=== PATIENT | female | born 1985 | race Caucasian/White ===

== ENCOUNTER 2021-12-13 07:43 | Inpatient (IN) ==
[2021-12-13] MEDS ORDERED: SODIUM CHLORIDE 0.9% 1000ML 1,000 ML IV SCH (08:00)
--- NOTE | 2021-12-13 08:00 | Emergency Department Note ---
Impression & Plan Overdose, Hypoxic, Drug abuse ED Provider Note NAME: MONICA GARDNER AGE: 36 SEX: F : 1985 ARRIVES VIA: Ambulance INFORMANT: Patient ED PROVIDER(S): Aime Doty DO CHIEF COMPLAINT: Overdose HPI: Patient is a 35-year-old female who is an alcoholic who presents from [facility]. She notes she took her normal medications last night of gabapentin, trazodone and Zanaflex. He took these medications around 9. She notes prior to going in patient and she took a bunch of Adderall and has been unable to sleep. Somebody last [facility] gave her Suboxone and she took some of it last night to help her sleep. She thinks she took this summer around 11 PM. She denies any suicidal or homicidal ideations. No auditory visual hallucinations. She denies any chest pain with exception of pain on her left ribs following a fall. Pain is worse with palpation and movement. Denies any weakness or numbness in the arms or legs. ROS: See above HPI for pertinent positives & negatives. A total of 10 systems reviewed and were otherwise negative. PAST MEDICAL HISTORY:See Below PAST SURGICAL HISTORY:See Below FAMILY HISTORY:See Below SOCIAL HISTORY:See Below HOME MEDICATIONS:See Below ALLERGIES:See Below VITALS:See Below PHYSICAL EXAMINATION: GENERAL: Sitting up in bed, alert, disheveled, slightly intoxicated EYE EXAM: normal conjunctiva. PERRL and EOM's grossly intact. OROPHARYNX: no exudate, no erythema, lips, buccal mucosa, and tongue normal and mucous membranes are moist NECK: supple, no nuchal rigidity, no adenopathy, non-tender CHEST: Tenderness over the left lateral chest mid axillary line ribs 3 through 6 LUNGS: Clear to auscultation. Normal chest wall mechanics HEART: no murmurs, S1 normal and S2 normal ABDOMEN: abdomen soft, non-tender, normo-active bowel sounds, no masses, no rebound or guarding. BACK: Back is symmetrical on inspection and there is no deformity, no midline tenderness, no CVA tenderness. SKIN: no rashes and no bruising UPPER EXTREMITIES: upper extremities are grossly normal. LOWER EXTREMITIES: No pitting edema. NEURO EXAM: Normal sensorium, cranial nerves II-XII intact, normal speech, no weakness of arms, no weakness of legs. No drift. Finger to nose intact. Gross sensation intact. MEDICAL DECISION MAKING: Patient is a 36-year-old female who took nonprescribed medication to help her sleep at [facility]. IV was established blood work was obtained. Labs show no significant leukocytosis or anemia. BMP on LFTs bilirubin was unremarkable. TSH 4.7. Salicylates, acetaminophen, valproate, lithium and alcohol were negative. COVID was negative. She was monitored closely and her respiratory rate continued to decrease. She was placed on 2 L nasal cannula while in the ER as she was slightly hypoxic. She was difficult to arouse. Respiratory rate went down to 6. I did verbally stimulate her and she woke up. She initially refused Narcan but she fell back asleep and her respiratory rate went down again consequently she was given IV Narcan. Her respiratory rate improved. Did dis cuss with [facility] and they agree with current plan. Discussed with Luis Antonio Man and patient will be observed overnight. Triage Nursing notes reviewed. Limited review of prior medical records performed Vital Signs: reviewed and remarkable for no significant abnormalities Differential diagnosis: Differential diagnoses includes but is not limited to toxic, metabolic, infectious, traumatic, cardiac, neurologic, hematologic, psychiatric and inflammatory etiologies. ER treatment provided: See below Diagnostics interpreted by me: ECG: Sinus rhythm rate of 91 Normal axis No PVCs QTC 472 Cardiac Monitoring: An order was placed for continuous cardiac monitoring. The monitor shows a rate of 90 with sinus rhythm. Laboratory studies: As stated above and show below. Imaging studies: Portable AP upright 1 view the chest is unremarkable Consultation(s): With [facility] control as described above Discussed with the hospitalist Luis Antonio Man for further evaluation Procedures: none Critical Care: I have personally spent 31 minutes of critical care time in the direct management of this patient. This includes bedside care, interpretation of diagnostic studies, and testing, discussion with consultants, patient, and family members, and other required patient management activities. This 31 minutes is in excess of all separately billable procedures. Past Med/Surg History Medical History (Updated 12/13/21 @ 13:03 by Aime Doty DO) Alcohol abuse GERD (gastroesophageal reflux disease) PTSD (post-traumatic stress disorder) Withdrawal seizures Social History (Updated 12/13/21 @ 11:14 by ALIN Parada) Smoking Status: Current every day smoker Tobacco Type: E-cigarettes / Vaping Hx Alcohol Use: Yes Hx Substance Use: Yes Feels Safe at Home: Yes Home Meds Home Medications Medication Instructions Recorded Confirmed biotin 1,000 mcg chewable tablet 1,000 mcg PO DAILY 12/13/21 12/13/21 cyanocobalamin (vitamin B-12) 1,000 mcg PO DAILY 12/13/21 12/13/21 1,000 mcg tablet (Vitamin B-12) diazepam 5 mg tablet (Valium) 5 mg PO TID 12/13/21 12/13/21 folic acid 1 mg tablet 1 mg PO DAILY 12/13/21 12/13/21 gabapentin 600 mg tablet 600 mg PO DAILY 12/13/21 12/13/21 multivitamin 1 tab PO DAILY 12/13/21 12/13/21 paroxetine HCl 40 mg tablet 50 mg PO DAILY 12/13/21 12/13/21 thiamine HCl (vitamin B1) 100 mg 100 mg PO DAILY 12/13/21 12/13/21 tablet trazodone 100 mg tablet 100 mg PO HS 12/13/21 12/13/21 Results & Data (ED) Vital Signs Vital Signs - 24 hr 12/13/21 07:53 12/13/21 08:05 12/13/21 08:30 Temperature 36.8 C Temperature Source Oral Pulse Rate 90 86 91 H Pulse Rate [Apical] Pulse Rate from SpO2 Sensor 85 92 H Respiratory Rate 18 16 12 Blood Pressure 101/77 110/73 Blood Pressure [Left Arm] Blood Pressure Mean 85 85 Blood Pressure Mean [Left Arm] Pulse Oximetry 95 99 97 Oxygen Delivery Method Room Air Oxygen Flow Rate 2 2 Sepsis Recent Fever Within 48 Hours No Sepsis New/Unexplained Change in Mental Status No Sepsis Action Taken by Nursing No Action Required 12/13/21 09:00 12/13/21 09:09 12/13/21 09:30 Temperature Temperature Source Pulse Rate 96 H 98 H Pulse Rate [Apical] Pulse Rate from SpO2 Sensor 97 H 99 H Respiratory Rate 16 12 Blood Pressure 108/72 120/72 Blood Pressure [Left Arm] Blood Pressure Mean 84 88 Blood Pressure Mean [Left Arm] Pulse Oximetry 98 92 Oxygen Delivery Method Nasal Cannula Oxygen Flow Rate 2 2 2 Sepsis Recent Fever Within 48 Hours Sepsis New/Unexplained Change in Mental Status Sepsis Action Taken by Nursing 12/13/21 10:00 12/13/21 10:30 12/13/21 11:00 Temperature Temperature Source Pulse Rate 96 H 94 H 86 Pulse Rate [Apical] 95 H Pulse Rate from SpO2 Sensor 97 H 96 H 83 Respiratory Rate 6 L 21 10 L Blood Pressure 120/88 92/61 L 108/77 Blood Pressure [Left Arm] 108/77 Blood Pressure Mean 98 71 87 Blood Pressure Mean [Left Arm] 87 Pulse Oximetry 100 99 100 Oxygen Delivery Method Nasal Cannula Oxygen Flow Rate 2 2 2 Sepsis Recent Fever Within 48 Hours Sepsis New/Unexplained Change in Mental Status Sepsis Action Taken by Nursing 12/13/21 11:30 12/13/21 12:00 Temperature Temperature Source Pulse Rate 89 93 H Pulse Rate [Apical] Pulse Rate from SpO2 Sensor 90 93 H Respiratory Rate 18 12 Blood Pressure 105/74 112/79 Blood Pressure [Left Arm] Blood Pressure Mean 84 90 Blood Pressure Mean [Left Arm] Pulse Oximetry 97 100 Oxygen Delivery Method Nasal Cannula Nasal Cannula Oxygen Flow Rate 2 2 Sepsis Recent Fever Within 48 Hours Sepsis New/Unexplained Change in Mental Status Sepsis Action Taken by Nursing Laboratory Data Result diagrams: 12/13/21 08:12 12/13/21 08:12 Lab Results 12/13/21 12/13/21 12/13/21 Range/Units 08:12 08:12 08:12 WBC 7.88 (4.8-10.8) K/uL RBC 4.37 (4.2-5.4) M/uL Hgb 11.6 L (12.0-16.0) g/dL Hct 35.8 L (37-47) % MCV 81.9 (80-100) fL MCH 26.5 (25-34) pg MCHC 32.4 (32-36) g/dL RDW Std Deviation 45.3 (36.4-46.3) fL RDW Coeff of Prosper 15.3 H (11.5-14.5) % Plt Count 296 (130-400) K/uL MPV 9.6 (7.4-10.4) fL Immature Gran % (Auto) 0.1 % Neut % (Auto) 66.9 % Lymph % (Auto) 25.1 % [place] % (Auto) 7.0 % Eos % (Auto) 0.6 % Baso % (Auto) 0.3 % Neut # (Auto) 5.27 (1.4-6.5) K/uL Lymph # (Auto) 1.98 (1.2-3.4) K/uL [place] # (Auto) 0.55 (0.11-0.59) K/uL Eos # (Auto) 0.05 (0-0.5) K/uL Baso # (Auto) 0.02 (0-0.2) K/uL Immature Gran # (Auto) 0.01 (0.00-0.02) K/uL VBG pH VBG pCO2 VBG pO2 VBG HCO3 VBG O2 Saturation VBG Base Excess Barometric Pressure Sodium 139 (136-145) mmol/L Potassium 3.7 (3.5-5.1) mmol/L Chloride 104 (98-107) mmol/L Carbon Dioxide 28 (21-32) mmol/L Anion Gap 7 (3-11) BUN 9 (6-23) mg/dl Creatinine 0.91 (0.6-1.2) mg/dl Est Cr Clr Drug Dosing 89.2 ml/min Est GFR ( Amer) 95.4 ml/min Est GFR (Non-Af Amer) 82.3 ml/min BUN/Creatinine Ratio 9.9 L (10-20) Glucose 84 (70-99(Fasting)) mg/dl POC Glucose (70-99) mg/dl Lactate (0.4-2.0) mmol/L Calcium 8.4 L (8.5-10.1) mg/dl Total Bilirubin 0.3 (0.2-1.0) mg/dl AST 14 (13-39) U/L ALT 13 (7-52) U/L Alkaline Phosphatase 73 (34-104) U/L Total Protein 6.9 (6.0-8.3) gm/dl Albumin 4.0 (3.4-5.0) gm/dl Globulin 2.9 (2.5-4.0) gm/dl Albumin/Globulin Ratio 1.4 (0.9-2) TSH 4.799 H (0.300-4.500) uIu/ml Free T4 1.09 (0.61-1.60) ng/dl Salicylates (3.0-30) mg/dl Acetaminophen (10-30) ug/ml Valproic Acid (50-100) mcg/ml Cuney (0.6-1.2) mmol/L Ethyl Alcohol mg/dL (<10.0) mg/dl SARS-CoV-2, RNA, NAAT (NEGATIVE) 12/13/21 12/13/21 12/13/21 Range/Units 08:12 08:12 10:00 WBC (4.8-10.8) K/uL RBC (4.2-5.4) M/uL Hgb (12.0-16.0) g/dL Hct (37-47) % MCV (80-100) fL MCH (25-34) pg MCHC (32-36) g/dL RDW Std Deviation (36.4-46.3) fL RDW Coeff of Prosper (11.5-14.5) % Plt Count (130-400) K/uL MPV (7.4-10.4) fL Immature Gran % (Auto) % Neut % (Auto) % Lymph % (Auto) % [place] % (Auto) % Eos % (Auto) % Baso % (Auto) % Neut # (Auto) (1.4-6.5) K/uL Lymph # (Auto) (1.2-3.4) K/uL [place] # (Auto) (0.11-0.59) K/uL Eos # (Auto) (0-0.5) K/uL Baso # (Auto) (0-0.2) K/uL Immature Gran # (Auto) (0.00-0.02) K/uL VBG pH VBG pCO2 VBG pO2 VBG HCO3 VBG O2 Saturation VBG Base Excess Barometric Pressure Sodium (136-145) mmol/L Potassium (3.5-5.1) mmol/L Chloride (98-107) mmol/L Carbon Dioxide (21-32) mmol/L Anion Gap (3-11) BUN (6-23) mg/dl Creatinine (0.6-1.2) mg/dl Est Cr Clr Drug Dosing ml/min Est GFR ( Amer) ml/min Est GFR (Non-Af Amer) ml/min BUN/Creatinine Ratio (10-20) Glucose (70-99(Fasting)) mg/dl POC Glucose 92 (70-99) mg/dl Lactate (0.4-2.0) mmol/L Calcium (8.5-10.1) mg/dl Total Bilirubin (0.2-1.0) mg/dl AST (13-39) U/L ALT (7-52) U/L Alkaline Phosphatase (34-104) U/L Total Protein (6.0-8.3) gm/dl Albumin (3.4-5.0) gm/dl Globulin (2.5-4.0) gm/dl Albumin/Globulin Ratio (0.9-2) TSH (0.300-4.500) uIu/ml Free T4 (0.61-1.60) ng/dl Salicylates < 3.0 L (3.0-30) mg/dl Acetaminophen < 3 L (10-30) ug/ml Valproic Acid < 10 L (50-100) mcg/ml Cuney < 0.1 L (0.6-1.2) mmol/L Ethyl Alcohol mg/dL < 10.0 (<10.0) mg/dl SARS-CoV-2, RNA, NAAT (NEGATIVE) 12/13/21 12/13/21 12/13/21 Range/Units 10:20 10:51 12:25 WBC (4.8-10.8) K/uL RBC (4.2-5.4) M/uL Hgb (12.0-16.0) g/dL Hct (37-47) % MCV (80-100) fL MCH (25-34) pg MCHC (32-36) g/dL RDW Std Deviation (36.4-46.3) fL RDW Coeff of Prosper (11.5-14.5) % Plt Count (130-400) K/uL MPV (7.4-10.4) fL Immature Gran % (Auto) % Neut % (Auto) % Lymph % (Auto) % [place] % (Auto) % Eos % (Auto) % Baso % (Auto) % Neut # (Auto) (1.4-6.5) K/uL Lymph # (Auto) (1.2-3.4) K/uL [place] # (Auto) (0.11-0.59) K/uL Eos # (Auto) (0-0.5) K/uL Baso # (Auto) (0-0.2) K/uL Immature Gran # (Auto) (0.00-0.02) K/uL VBG pH Cancelled VBG pCO2 Cancelled VBG pO2 Cancelled VBG HCO3 Cancelled VBG O2 Saturation Cancelled VBG Base Excess Cancelled Barometric Pressure Cancelled Sodium (136-145) mmol/L Potassium (3.5-5.1) mmol/L Chloride (98-107) mmol/L Carbon Dioxide (21-32) mmol/L Anion Gap (3-11) BUN (6-23) mg/dl Creatinine (0.6-1.2) mg/dl Est Cr Clr Drug Dosing ml/min Est GFR ( Amer) ml/min Est GFR (Non-Af Amer) ml/min BUN/Creatinine Ratio (10-20) Glucose (70-99(Fasting)) mg/dl POC Glucose (70-99) mg/dl Lactate 1.1 (0.4-2.0) mmol/L Calcium (8.5-10.1) mg/dl Total Bilirubin (0.2-1.0) mg/dl AST (13-39) U/L ALT (7-52) U/L Alkaline Phosphatase (34-104) U/L Total Protein (6.0-8.3) gm/dl Albumin (3.4-5.0) gm/dl Globulin (2.5-4.0) gm/dl Albumin/Globulin Ratio (0.9-2) TSH (0.300-4.500) uIu/ml Free T4 (0.61-1.60) ng/dl Salicylates (3.0-30) mg/dl Acetaminophen (10-30) ug/ml Valproic Acid (50-100) mcg/ml Cuney (0.6-1.2) mmol/L Ethyl Alcohol mg/dL (<10.0) mg/dl SARS-CoV-2, RNA, NAAT NEGATIVE (NEGATIVE) 12/13/21 Range/Units 12:25 WBC (4.8-10.8) K/uL RBC (4.2-5.4) M/uL Hgb (12.0-16.0) g/dL Hct (37-47) % MCV (80-100) fL MCH (25-34) pg MCHC (32-36) g/dL RDW Std Deviation (36.4-46.3) fL RDW Coeff of Prosper (11.5-14.5) % Plt Count (130-400) K/uL MPV (7.4-10.4) fL Immature Gran % (Auto) % Neut % (Auto) % Lymph % (Auto) % [place] % (Auto) % Eos % (Auto) % Baso % (Auto) % Neut # (Auto) (1.4-6.5) K/uL Lymph # (Auto) (1.2-3.4) K/uL [place] # (Auto) (0.11-0.59) K/uL Eos # (Auto) (0-0.5) K/uL Baso # (Auto) (0-0.2) K/uL Immature Gran # (Auto) (0.00-0.02) K/uL VBG pH 7.22 L VBG pCO2 76 H VBG pO2 28 VBG HCO3 31 VBG O2 Saturation < 60.0 VBG Base Excess 1.0 Barometric Pressure 732.0 Sodium (136-145) mmol/L Potassium (3.5-5.1) mmol/L Chloride (98-107) mmol/L Carbon Dioxide (21-32) mmol/L Anion Gap (3-11) BUN (6-23) mg/dl Creatinine (0.6-1.2) mg/dl Est Cr Clr Drug Dosing ml/min Est GFR ( Amer) ml/min Est GFR (Non-Af Amer) ml/min BUN/Creatinine Ratio (10-20) Glucose (70-99(Fasting)) mg/dl POC Glucose (70-99) mg/dl Lactate (0.4-2.0) mmol/L Calcium (8.5-10.1) mg/dl Total Bilirubin (0.2-1.0) mg/dl AST (13-39) U/L ALT (7-52) U/L Alkaline Phosphatase (34-104) U/L Total Protein (6.0-8.3) gm/dl Albumin (3.4-5.0) gm/dl Globulin (2.5-4.0) gm/dl Albumin/Globulin Ratio (0.9-2) TSH (0.300-4.500) uIu/ml Free T4 (0.61-1.60) ng/dl Salicylates (3.0-30) mg/dl Acetaminophen (10-30) ug/ml Valproic Acid (50-100) mcg/ml [place]une[place] (0.6-1.2) mmol/L Ethyl Alcohol mg/dL (<10.0) mg/dl SARS-CoV-2, RNA, NAAT (NEGATIVE) Administered Medications Lactated Ringer's (Lr) 1,000 mls @ 125 mls/hr IV .Q8H EVER Stop: 01/12/22 11:26 Last Admin: 12/13/21 11:43 Dose: 125 mls/hr Documented by: [id number] Discontinued Medications Sodium Chloride (Nss 1000ml) 1,000 mls @ 999 mls/hr IV .Q1H1M EVER Stop: 12/13/21 09:00 Last Infusion: 12/13/21 09:39 Dose: 0 mls/hr Documented by: [id number] Admin: 12/13/21 08:16 Dose: 999 mls/hr Documented by: [id number] Naloxone HCl (Naloxone Hcl 0.4 Mg/1 Ml Vial/Carp) 0.4 mg IV NOW STA Stop: 12/13/21 09:57 Last Admin: 12/13/21 10:06 Dose: 0.2 mg Documented by: [id number] Naloxone HCl (Naloxone Hcl 0.4 Mg/1 Ml Vial/Carp) 0.4 mg IV NOW STA Stop: 12/13/21 10:39 Last Admin: 12/13/21 11:42 Dose: 0.4 mg Documented by: [id number] Naloxone HCl (Naloxone Hcl 0.4 Mg/1 Ml Vial/Carp) 0.4 mg IV NOW STA Stop: 12/13/21 12:28 Last Admin: 12/13/21 12:33 Dose: 0.4 mg Documented by: [id number] Imaging Data Radiologist's Impression: Chest X-Ray 12/13/21 07:57 XR chest 1V portable CLINICAL HISTORY: OD. COMPARISON STUDY: No previous studies for comparison. TECHNIQUE: 1 view of the chest FINDINGS: Single frontal view of the chest demonstrates the cardiomediastinal silhouette to be within normal limits. There is a decreased inspiratory effort with elevation of the hemidiaphragms and crowding of the bronchovascular markings at the lung bases and centrally. The lungs are clear of alveolar opacities. There is no evidence for pleural effusion. There is no evidence for vascular congestion. There is no acute osseous pathology. IMPRESSION: 1. There is a decreased inspiratory effort with otherwise no acute chest diseas e. ACT 112: Negative or not required by law. Electronically signed by: Felix Castle M.D. 12/13/2021 8:43 AM Discharge Plan Visit Data Chief Complaint: Overdose (Intentional) Stated Complaint: AMS/Overdose ED Provider: Aime Doty Discharge Problem: Overdose, Hypoxic, Drug abuse Discharge Instructions Interventions: ED Discharge Assessment Last Done: 12/13/21 12:09 Forms Stand Alone Forms: My [facility], Suicide Prevention Resources Prescriptions Prescriptions: No Action multivitamin Tablet 1 tab PO DAILY RF: 0 gabapentin 600 mg Tablet 600 mg PO DAILY RF: 0 cyanocobalamin (vitamin B-12) [Vitamin B-12] 1,000 mcg Tablet 1,000 mcg PO DAILY RF: 0 thiamine HCl (vitamin B1) 100 mg Tablet 100 mg PO DAILY RF: 0 trazodone 100 mg Tablet 100 mg PO HS RF: 0 folic acid 1 mg Tablet 1 mg PO DAILY RF: 0 paroxetine HCl 40 mg Tablet 50 mg PO DAILY RF: 0 diazepam [Valium] 5 mg Tablet 5 mg PO TID RF: 0 biotin 1,000 mcg Tablet,Chewable 1,000 mcg PO DAILY RF: 0 Referrals Referrals: PCP,NO [Primary Care Provider] -
[2021-12-13 08:27] LABS: Basophils # (auto) 0.02 K/uL (0-0.2); Basophils % (auto) 0.3 %; Eosinophils # (auto) 0.05 K/uL (0-0.5); Eosinophils % (auto) 0.6 %; Hematocrit (blood only) 35.8 % (37-47); Hemoglobin 11.6 g/dL (12.0-16.0); Immature Granulocytes # (auto) 0.01 K/uL (0.00-0.02); Immature Granulocytes % (auto) 0.1 %; Lymphocytes # (auto) 1.98 K/uL (1.2-3.4); Lymphocytes % (auto) 25.1 %; Mean Corpuscular Hemoglobin 26.5 pg (25-34); Mean Corpuscular Hgb Conc 32.4 g/dL (32-36); Mean Corpuscular Volume 81.9 fL (80-100); Mean Platelet Volume 9.6 fL (7.4-10.4); Monocytes # (auto) 0.55 K/uL (0.11-0.59); Neutrophils # (auto) 5.27 K/uL (1.4-6.5); Neutrophils % (auto) 66.9 %; Platelet Count 296 K/uL (130-400); RDW Coefficient of Variation 15.3 % (11.5-14.5); RDW Standard Deviation 45.3 fL (36.4-46.3); Red Blood Count 4.37 M/uL (4.2-5.4); White Blood Count 7.88 K/uL (4.8-10.8)
--- NOTE | 2021-12-13 08:45 | XRay Report ---
XR chest 1V portable CLINICAL HISTORY: OD. COMPARISON STUDY: No previous studies for comparison. TECHNIQUE: 1 view of the chest FINDINGS: Single frontal view of the chest demonstrates the cardiomediastinal silhouette to be within normal li mits. There is a decreased inspiratory effort with elevation of the hemidiaphragms and crowding of th e bronchovascular markings at the lung bases and centrally. The lungs are clear of alveolar opacities . There is no evidence for pleural effusion. There is no evidence for vascular congestion. There is n o acute osseous pathology. IMPRESSION: 1. There is a decreased inspiratory effort with otherwise no acute chest disease. ACT 112: Negative or not required by law. Electronically signed by: Felix Castle M.D. 12/13/2021 8:43 AM
[2021-12-13 08:47] LABS: Albumin Globulin Ratio 1.4 (0.9-2); BUN Creatinine Ratio 9.9 (10-20); Bilirubin,Total 0.3 mg/dl (0.2-1.0); Calcium 8.4 mg/dl (8.5-10.1); Creatinine Clr Calc Pharmacy 89.2 ml/min; Est GFR (African American) 95.4 ml/min; Est GFR (Non-African American) 82.3 ml/min; Globulin 2.9 gm/dl (2.5-4.0); Potassium 3.7 mmol/L (3.5-5.1); Total Protein 6.9 gm/dl (6.0-8.3)
[2021-12-13 09:04] LABS: Acetaminophen < 3 ug/ml (10-30); Lithium < 0.1 mmol/L (0.6-1.2); Salicylate < 3.0 mg/dl (3.0-30); Valproic Acid < 10 mcg/ml (50-100)
[2021-12-13 09:14] LABS: Thyroid Stimulating Hormone 4.799 uIu/ml (0.300-4.500)
[2021-12-13] MEDS ORDERED: NALOXONE HCL 0.4 MG/1 ML VIAL/CARP IV STA ×3 (09:56→12:27)
[2021-12-13 11:17] LABS: T4 Free Thyroxine 1.09 ng/dl (0.61-1.60)
--- NOTE | 2021-12-13 11:27 | History & Physical Report ---
Date of Service December 13, 2021 Assessment & Plan (1) Overdose: Plan: Patient with alcohol history who was enrolled to [facility] rehab on [id number] with her last drink of Alcohol reported [id number]- she used to drink to pass out and has since been unable to sleep - As per HPI unsure of what is ingested- but she reports 30tabs of adderral uncertain time and 1/2 of suboxone or like agent - Narcan 0.4 mg IV now - admit to PCU with EtCO2 monitoring- if she needs another dose of Narcan will initiate narcan infusion while pending the rest of her urine tox screen - HCo3 is normal- VBG and lactate on admission - Unintentional overdose without suicidal ideation voiced by patient- will remain 1:1 until better able to contract for safety - LR at 125ml/hour - Urine tox scree for full profile of other agents - Should show improvement by this afternoon Will hold her benzodiazepines at this time with her somnolence- should she seize from ETOH/benzo withdraw- Valium IV 5mg - Will also cut her dose of gabapentin by 50% until more awake to avoid further possible sedating effects but also prevent withdraw - Mentation clears will add AAWS - Dextrose sticks for hyper/hypoglycemic monitoring (2) Alcohol abuse: Plan: As above- she reports previously sober x 4 years - drinks secondary to a PTSD event- unsure what - Return to [facility] once mentation improves and no other metabolic abnormalities - Continue Thiamine and Folic acid (3) Withdrawal seizures: Plan: As above (4) PTSD (post-traumatic stress disorder): Plan: As above - continue Paxil (5) GERD (gastroesophageal reflux disease): Plan: Famotidine IV until Po tolerated History of Present Illness Primary Care Provider: NO PCP 36 YOF with medical history of: Alcohol abuse, reported seizures with withdraw, neuropathy, PTSD, rib pain from fall. Patient comes to the EMD today from [facility] rehab for concern of overdose. The patient reports that she has been having trouble sleeping since she has stopped drinking and just wanted something to help her sleep. She reports taking 30 tabs of Adderall but unclear of time- appears to be yesterday, and then still unable to sleep she took 1/2 tab of Suboxone from a person there and took that. She reports that she knew it was Suboxone by "the taste". The patient states that she took her normal amount of her other medications last evening at their normal dose except the Adderall and the Suboxone. In the EMD the patient had routine labs performed to include- salicylate level, etoh level, Tylenol level, valproic acid, and lithium level, ECG, CXR. She was given 0.2mg IV Narcan in EMD and 1 liter of crystalloid. Hospitalist service was consulted for admission. She has not voided yet so will obtain straight cath if she does not void with tox screen for full profile. Will administer another dose of Narcan as she remains somnolent, but is improving as the interview goes on. RR as low as 6 upon entering room. She will be admitted to PCU status with monitoring capabilities of EtCO2 and continue to follow her mentation and Narcan needs. She has normal Qt interval. EMD discussed with poison control. Overall patient slightly improving- as above re-dose Narcan if needed- continue with IVF of LR at 125ml/hr- will hold on her benzodiazepine for now until her mentation improves and will likely be able to dose later for her ETHO withdraw/seizures. VBG and lactate pending as well as urine tox. COVID test is: NEGATIVE Reports [facility]CP as: [facility] in [place]- [phone] as well as physician at [facility] Medications Medication Instructions Recorded Confirmed Type biotin 1,000 mcg chewable tablet 1,000 mcg PO DAILY 12/13/21 12/13/21 History cyanocobalamin (vitamin B-12) 1,000 mcg PO DAILY 12/13/21 12/13/21 History 1,000 mcg tablet (Vitamin B-12) diazepam 5 mg tablet (Valium) 5 mg PO TID 12/13/21 12/13/21 History folic acid 1 mg tablet 1 mg PO DAILY 12/13/21 12/13/21 History gabapentin 600 mg tablet 600 mg PO DAILY 12/13/21 12/13/21 History multivitamin 1 tab PO DAILY 12/13/21 12/13/21 History paroxetine HCl 40 mg tablet 50 mg PO DAILY 12/13/21 12/13/21 History thiamine HCl (vitamin B1) 100 mg 100 mg PO DAILY 12/13/21 12/13/21 History tablet trazodone 100 mg tablet 100 mg PO HS 12/13/21 12/13/21 History Past Med/Surg History Medical History (Updated 12/13/21 @ 11:19 by ALIN Parada) Alcohol abuse GERD (gastroesophageal reflux disease) PTSD (post-traumatic stress disorder) Withdrawal seizures Social History (Updated 12/13/21 @ 11:14 by ALIN Parada) Smoking Status: Current every day smoker Tobacco Type: E-cigarettes / Vaping Hx Alcohol Use: Yes Hx Substance Use: Yes Feels Safe at Home: Yes Review of Systems Review of Systems: REVIEW OF SYSTEMS: Constitutional: No fever, sweats or chills Eyes: No diplopia, no worsening or blurred vision ENT: normal hearing, no trouble swallowing Respiratory: No cough, sputum, dyspnea at rest or on exertion Cardiovascular: No chest pain, tightness or palpitations Abdomen: No pain, nausea, vomiting, diarrhea or constipation Musculoskeletal: (+) rib/back pain, falls, NO calf pain, swelling Neurologic: No weakness, numbness/tingling, or balance problems Psychiatric: No anxiety or depression Skin: No rash or itch Physical Exam Physical Exam: PHYSICAL EXAM: General: somnulent awakens with conversation, still dozes off during exam Head: Normocephalic, atraumatic ENT: PERRLA- sluggish 2-1, EOMI, no pharyngeal exudate, mucous membranes dry Neuro: AAO x 2, speech slurred and appropriate, strength intact bilaterally 5/5, sensation intact and equal all extremities and dermatomes, no pronator drift Chest: equal rise and fall of the chest, no accessory muscle use, no heaves or thrills, Clear to auscultation, on 2LNC Cardiac: Regular rate and rhythm, telemetry reviewed, skin warm dry, cap refill <3 seconds, peripheral pulses +2 no JVD, no murmur, no edema GI: NABS x 4 quadrants, soft, nontender to palpation, no rebound, guarding or tenderness : Awaiting urine sample Extremities: Normal inspection, no peripheral edema or erythema, calfs nontender to palpation Psych: states she was not wanting to hurt herself and denies suicidal ideations- just wanted to sleep Skin: no rash or erythema Results & Data Results & Data ([facility]) Vital Signs (Past 12 Hours) Vital Signs Temp Pulse Resp BP Pulse Ox 12/13/21 10:30 94 H 21 92/61 L 99 12/13/21 10:00 96 H 6 L 120/88 100 12/13/21 09:30 98 H 12 120/72 92 12/13/21 09:00 96 H 16 108/72 98 12/13/21 08:30 91 H 12 110/73 97 12/13/21 08:05 86 16 99 12/13/21 07:53 36.8 C 90 18 101/77 95 Laboratory Results Abnormal lab results 12/13/21 12/13/21 12/13/21 Range/Units 08:12 08:12 08:12 Hgb 11.6 L (12.0-16.0) g/dL Hct 35.8 L (37-47) % RDW Coeff of Prosper 15.3 H (11.5-14.5) % BUN/Creatinine Ratio 9.9 L (10-20) Calcium 8.4 L (8.5-10.1) mg/dl TSH 4.799 H (0.300-4.500) uIu/ml Salicylates (3.0-30) mg/dl Acetaminophen (10-30) ug/ml Valproic Acid (50-100) mcg/ml [place] (0.6-1.2) mmol/L 12/13/21 Range/Units 08:12 Hgb (12.0-16.0) g/dL Hct (37-47) % RDW Coeff of Prosper (11.5-14.5) % BUN/Creatinine Ratio (10-20) Calcium (8.5-10.1) mg/dl TSH (0.300-4.500) uIu/ml Salicylates < 3.0 L (3.0-30) mg/dl Acetaminophen < 3 L (10-30) ug/ml Valproic Acid < 10 L (50-100) mcg/ml [place] < 0.1 L (0.6-1.2) mmol/L Diagnostic Findings Chest X-Ray 12/13/21 07:57 XR chest 1V portable CLINICAL HISTORY: OD. COMPARISON STUDY: No previous studies for comparison. TECHNIQUE: 1 view of the chest FINDINGS: Single frontal view of the chest demonstrates the cardiomediastinal silhouette to be within normal limits. There is a decreased inspiratory effort with elevation of the hemidiaphragms and crowding of the bronchovascular markings at the lung bases and centrally. The lungs are clear of alveolar opacities. There is no evidence for pleural effusion. There is no evidence for vascular congestion. There is no acute osseous pathology. IMPRESSION: 1. There is a decreased inspiratory effort with otherwise no acute chest disease. ACT 112: Negative or not required by law. Electronically signed by: Felix Castle M.D. 12/13/2021 8:43 AM Medications Administered Home Medications biotin 1,000 mcg chewable tablet 1,000 mcg PO DAILY 12/13/21 [History Confirmed 12/13/21] cyanocobalamin (vitamin B-12) 1,000 mcg tablet (Vitamin B-12) 1,000 mcg PO DAILY 12/13/21 [History Confirmed 12/13/21] diazepam 5 mg tablet (Valium) 5 mg PO TID 12/13/21 [History Confirmed 12/13/21] folic acid 1 mg tablet 1 mg PO DAILY 12/13/21 [History Confirmed 12/13/21] gabapentin 600 mg tablet 600 mg PO DAILY 12/13/21 [History Confirmed 12/13/21] multivitamin 1 tab PO DAILY 12/13/21 [History Confirmed 12/13/21] paroxetine HCl 40 mg tablet 50 mg PO DAILY 12/13/21 [History Confirmed 12/13/21] thiamine HCl (vitamin B1) 100 mg tablet 100 mg PO DAILY 12/13/21 [History Confirmed 12/13/21] trazodone 100 mg tablet 100 mg PO HS 12/13/21 [History Confirmed 12/13/21] ECG Additional Comments: Normal sinus rhythm Normal ECG No previous ECGs available Code Status & VTE Plan Code Status CODE: FULL VTE: SCDS, OOB ambulation VTE Prophylaxis Plan VTE Prophylaxis will be ordered: Yes PG Care Time/CCT Total # of Minutes Spent Total Time Spent with Patient: Total time spent is greater than 50% in coordination of care (as documented) at patient's floor/unit and/or counseling patient: Coding Level of Care Code INT OBSERVATION CARE 70M LVL 3 Diagnoses Overdose T50.901A Alcohol abuse F10.10 Withdrawal seizures F19.239; R56.9 PTSD (post-traumatic stress disorder) F43.10 GERD (gastroesophageal reflux disease) K21.9
[2021-12-13] MEDS: LACTATED RINGER'S 1,000 ML IV SCH ×2 (11:43→22:54)
[2021-12-13] MEDS ORDERED: STAT IV Infusion **Titration per Protocol STA (12:31)
[2021-12-13 12:38] LABS: HCO3 VBG 31 mmol/L; PCO2 VBG 76 mmHg (38-50); PO2 VBG 28 mmHg; pH VBG 7.22 (7.36-7.41)
[2021-12-13 12:40] LABS: Oxygen Saturation VBG < 60.0 %
[2021-12-13] MEDS ORDERED: CARBOHYDRATES FOR HYPOGLYCEMIA PO PRN (13:13)
[2021-12-13] MEDS ORDERED: cloNIDine HCL 0.1 MG TAB PO PRN (13:13)
[2021-12-13] MEDS ORDERED: GLUCOSE 10 TABS/TUBE PO PRN (13:13)
[2021-12-13] MEDS ORDERED: GLUCOSE 40% GEL 15 GM TUBE PO PRN (13:13)
[2021-12-13] MEDS ORDERED: NALOXONE HCL 5 MG in 0.9 % SODIUM CHLORIDE 87.5 ML IV SCH (13:13)
[2021-12-13] MEDS ORDERED: DEXTROSE 50% 50 ML SYRINGE IV PRN (13:13)
[2021-12-13] MEDS ORDERED: ACETAMINOPHEN 325 MG TAB PO PRN (13:13)
[2021-12-13] MEDS ORDERED: FAMOTIDINE 20 MG in SYRINGE 3 ML IV SCH (13:13)
[2021-12-13] MEDS ORDERED: GLUCAGON FOR INJ 1 MG VIAL SQ PRN (13:13)
--- NOTE | 2021-12-13 15:00 | Electrocardiogram Report ---
Test Reason : Blood Pressure : / mmHG Vent. Rate : 091 BPM Atrial Rate : 091 BPM P-R Int : 156 ms QRS Dur : 084 ms QT Int : 384 ms P-R-T Axes : 037 024 027 degrees QTc Int : 472 ms Normal sinus rhythm Normal ECG No previous ECGs available Confirmed by Erickson Coleman ([id number]) on 12/13/2021 3:00:09 PM Referred By: Confirmed By:Valentín Coleman
[2021-12-13] MEDS: NALOXONE HCL 0.4 MG/1 ML VIAL/CARP IV ONE ×2 (15:17→15:21)
[2021-12-13] MEDS: GABAPENTIN 600 MG TAB PO SCH ×3 (15:22→22:51)
[2021-12-13] MEDS ORDERED: tiZANidine HCL 4 MG TABLET PO PRN (21:39)
[2021-12-13 21:50] LABS: Amphetamines+Metham, Urine Pos (Neg); Barbiturates, Urine Neg (Neg); Benzodiazepine, Urine Pos (Neg); Cocaine, Urine Neg (Neg); MDMA (Ecstacy), Urine Pos (Neg); Methadone, Urine Neg (Neg); Opiate, Urine Neg (Neg); Phencyclidine, Urine Neg (Neg)
[2021-12-13] MEDS ORDERED: traZODone HCL 100 MG TAB PO SCH (22:05)
[2021-12-13] MEDS: diazePAM 5 MG TABLET PO SCH (22:53)
[2021-12-14 05:23] LABS: Basophils # (auto) 0.03 K/uL (0-0.2); Basophils % (auto) 0.5 %; Eosinophils # (auto) 0.07 K/uL (0-0.5); Eosinophils % (auto) 1.1 %; Hematocrit (blood only) 35.1 % (37-47); Lymphocytes # (auto) 2.41 K/uL (1.2-3.4); Mean Corpuscular Hemoglobin 26.6 pg (25-34); Mean Corpuscular Hgb Conc 31.3 g/dL (32-36); Mean Corpuscular Volume 84.8 fL (80-100); Mean Platelet Volume 9.7 fL (7.4-10.4); Monocytes # (auto) 0.45 K/uL (0.11-0.59); Monocytes % (auto) 6.9 %; Neutrophils # (auto) 3.56 K/uL (1.4-6.5); Neutrophils % (auto) 54.5 %; Platelet Count 278 K/uL (130-400); RDW Coefficient of Variation 15.4 % (11.5-14.5); RDW Standard Deviation 47.9 fL (36.4-46.3); Red Blood Count 4.14 M/uL (4.2-5.4); White Blood Count 6.52 K/uL (4.8-10.8)
[2021-12-14] MEDS: LACTATED RINGER'S 1,000 ML IV SCH (05:28)
[2021-12-14 05:48] LABS: BUN Creatinine Ratio 8.6 (10-20); Calcium 8.3 mg/dl (8.5-10.1); Creatinine Clr Calc Pharmacy 103.5 ml/min; Est GFR (African American) 109.8 ml/min; Est GFR (Non-African American) 94.8 ml/min; Magnesium 1.9 mg/dl (1.7-2.4); Potassium 3.9 mmol/L (3.5-5.1)
--- NOTE | 2021-12-14 07:40 | Hospitalist Progress Note ---
Date of Service December 14, 2021 Assessment & Plan (1) Overdose: Plan: Patient with alcohol history who was enrolled to [facility] rehab on [id number]- with her last drink of Alcohol reported [id number]- she used to drink to pass out and has since been unable to sleep - As per HPI unsure of what is ingested- but she reports 30tabs of adderral uncertain time and another agent she was told was Suboxone given to her by a co- resident - given Narcan on admission with improvement of her sedation but returned after it wore off - Unintentional overdose without suicidal ideation voiced by patient- - Urine tox scree for full profile of other agents found to have ecstasy benzod iazepines (she was prescribed these) and amphetamines Will hold her benzodiazepines at this time with her somnolence as needed Ativan available if need be. - Will also discontinue gabapentin altogether reduce trazodone to as needed (2) Alcohol abuse: Plan: As above- she reports previously sober x 4 years poorly last drink was on 09 December - drinks secondary to a PTSD event- unsure what - Return to [facility] once mentation improves and no other metabolic abnormalities - Continue Thiamine and Folic acid (3) Withdrawal seizures: Plan: As above (4) PTSD (post-traumatic stress disorder): Plan: As above - continue Paxil (5) GERD (gastroesophageal reflux disease): Plan: Famotidine IV until Po tolerated Plan: Patient will moved to medical floor with seizure precautions Admission and Anticipated Discharge Date Admission Date: December 13, 2021 Subjective Patient was seen in the ICU she is awake and conversant able to relate her hist ory of how she got here but she easily fell asleep. The morning she had some twitching movements which could have been a partial seizure versus some dyskinetic movements from medications. Despite the fact that she was intermittently awake and alert enough feel she is appropriate to return to a drug and alcohol detox center at this time and this becomes more coherent conscious and able to perform activities of daily living Review of Systems Review of Systems: Mild distress and moderate fatigue no headache, no visual changes no speech or swallowing issues no chest pain, pressure or palpitations no shortness of breath, cough or wheezes no abdominal pain, nausea or vomiting, diarrhea or constipation no dysuria, hematuria or frequency no focal joint pain or swelling no back pain, CVA tenderness or radicular pain no bruising, bleeding or rashes no focal signs of weakness or numbness or altered sensation Patient is lethargic and falls asleep easily Physical Exam Physical Exam: The patient appeared well but falls asleep easily during examination and interview Vital signs as documented. Lungs are clear to auscultation and appear unlabored Cardiac exam, Rhythm is regular.. No murmurs, rubs or gallops. Abdominal exam reveals normal bowel sounds, soft non tender, no masses Extremities are nonedematous and both pedal pulses are normal. Neurologic exam is alert and oriented, no focal loss of strength or sensation Skin is without bruises or rashes Psychologically is with concerns for substance abuse and dependence Results & Data Results & Data ([facility]) Vital Signs (Past 12 Hours) Vital Signs Temp Pulse Pulse Resp BP Pulse Ox 12/14/21 04:30 97.7 F 85 16 125/82 95 12/14/21 00:00 90 12/13/21 23:00 97.5 F L 90 18 106/66 96 PG Care Time/CCT Total # of Minutes Spent Total Time Spent with Patient: Total time spent is greater than 50% in coordination of care (as documented) at patient's floor/unit and/or counseling patient: Coding Level of Care Code 53166 Subseq Hosp Care Lvl 2 Diagnoses Overdose T50.904A Encounter type: initial encounter Injury intent: undetermined intent Alcohol abuse F10.10 Withdrawal seizures F19.239; R56.9 PTSD (post-traumatic stress disorder) F43.10 GERD (gastroesophageal reflux disease) K21.9 (1) Overdose Encounter type: initial encounter Injury intent: undetermined intent Qualified Code(s): T50.904A - Poisoning by unspecified drugs, medicaments and biological substances, undetermined, initial encounter
[2021-12-14] MEDS ORDERED: NON-FORMULARY MEDICATION (Biotin 1,000 mcg Tablet,Chewable) PO SCH (09:00)
[2021-12-14] MEDS: Patient's ALLERGY Info needs ENTERED SCH ×2 (09:28→13:12)
[2021-12-14] MEDS: diazePAM 5 MG TABLET PO SCH ×2 (10:56→11:48)
--- NOTE | 2021-12-14 11:37 | XRay Report ---
XR ribs LT min 2V HISTORY: 36 years-old Female fall with pain . Acute left-sided rib pain status post fall COMPARISON: Chest radiograph 12/13/2021 TECHNIQUE: 4 views of the left ribs FINDINGS: No acute rib fracture or pneumothorax identified. The imaged lung snell appear clear. Unremarkable s oft tissues. IMPRESSION: No acute rib fracture or pneumothorax. ACT 112: Negative or not required by law. The above report was generated using voice recognition software. It may contain grammatical, syntax o r spelling errors. Electronically signed by: Mauricio Gonzalez M.D. 12/14/2021 11:35 AM
[2021-12-14] MEDS: FOLIC ACID 1 MG TAB PO SCH (11:45)
[2021-12-14] MEDS: PANTOprazole 40 MG in SYRINGE 0 ML IV SCH ×2 (11:46→17:18)
[2021-12-14] MEDS: PARoxetine HCL 10 MG TAB PO SCH (11:46)
[2021-12-14] MEDS: GABAPENTIN 600 MG TAB PO SCH ×3 (11:46→13:13)
[2021-12-14] MEDS: THIAMINE HCL 100 MG TAB PO SCH (11:46)
[2021-12-14] MEDS ORDERED: SODIUM CHLORIDE 0.65% NA SOLN 45 ML (OCEAN) ONE (12:01)
[2021-12-14] MEDS ORDERED: SODIUM CHLORIDE 0.65% NA SOLN 45 ML (OCEAN) PRN (12:08)
[2021-12-14] MEDS ORDERED: traZODone HCL 50 MG TAB PO PRN (13:58)
[2021-12-14] MEDS ORDERED: LORazepam 2 MG/1 ML VIAL IV PRN (13:58)
[2021-12-14] MEDS ORDERED: diazePAM 2 MG TABLET PO ONE (17:12)
--- NOTE | 2021-12-14 18:11 | Electrocardiogram Report ---
Test Reason : Blood Pressure : / mmHG Vent. Rate : 079 BPM Atrial Rate : 079 BPM P-R Int : 148 ms QRS Dur : 084 ms QT Int : 380 ms P-R-T Axes : 031 013 030 degrees QTc Int : 435 ms Normal sinus rhythm Normal ECG When compared with ECG of 13-DEC-2021 08:00, Nonspecific T wave abnormality no longer evident in Anterior leads Confirmed by Erickson Coleman ([id number]) on 12/14/2021 6:10:44 PM Referred By: REFERRED SELF Confirmed By:Valentín Coleman
[2021-12-14] MEDS ORDERED: GABAPENTIN 300 MG CAP PO SCH (21:00)
[2021-12-14] MEDS ORDERED: diazePAM 5 MG TABLET PO SCH (21:00)
[2021-12-15 06:59] LABS: Basophils # (auto) 0.03 K/uL (0-0.2); Basophils % (auto) 0.4 %; Eosinophils # (auto) 0.13 K/uL (0-0.5); Eosinophils % (auto) 1.9 %; Hematocrit (blood only) 36.6 % (37-47); Hemoglobin 11.7 g/dL (12.0-16.0); Immature Granulocytes # (auto) 0.01 K/uL (0.00-0.02); Immature Granulocytes % (auto) 0.1 %; Lymphocytes # (auto) 3.08 K/uL (1.2-3.4); Lymphocytes % (auto) 44.2 %; Mean Corpuscular Hemoglobin 26.2 pg (25-34); Mean Corpuscular Volume 82.1 fL (80-100); Mean Platelet Volume 9.8 fL (7.4-10.4); Monocytes # (auto) 0.57 K/uL (0.11-0.59); Monocytes % (auto) 8.2 %; Neutrophils # (auto) 3.15 K/uL (1.4-6.5); Neutrophils % (auto) 45.2 %; Platelet Count 290 K/uL (130-400); RDW Coefficient of Variation 15.2 % (11.5-14.5); RDW Standard Deviation 44.9 fL (36.4-46.3); Red Blood Count 4.46 M/uL (4.2-5.4); White Blood Count 6.97 K/uL (4.8-10.8)
[2021-12-15 07:20] LABS: BUN Creatinine Ratio 12.2 (10-20); Calcium 8.2 mg/dl (8.5-10.1); Creatinine Clr Calc Pharmacy 113.3 ml/min; Est GFR (African American) 122.5 ml/min; Est GFR (Non-African American) 105.7 ml/min; Magnesium 1.9 mg/dl (1.7-2.4); Potassium 3.7 mmol/L (3.5-5.1)
[2021-12-15] MEDS: FOLIC ACID 1 MG TAB PO SCH (08:27)
[2021-12-15] MEDS: THIAMINE HCL 100 MG TAB PO SCH (08:27)
[2021-12-15] MEDS: PARoxetine HCL 10 MG TAB PO SCH (08:28)
[2021-12-15] MEDS ORDERED: MULTIVITAMIN TAB PO SCH (09:00)
--- NOTE | 2021-12-15 09:29 | Hospitalist Progress Note ---
Date of Service December 15, 2021 Assessment & Plan (1) Overdose: Plan: Patient with alcohol history who was enrolled to [facility] rehab on [id number]- with her last drink of Alcohol reported [id number]- she used to drink to pass out and has since been unable to sleep - As per HPI unsure of what is ingested- but she reports 30tabs of adderral uncertain time and another agent she was told was Suboxone given to her by a co- resident - given Narcan on admission with improvement of her sedation but returned after it wore off - Unintentional overdose without suicidal ideation voiced by patient- - Urine tox scree for full profile of other agents found to have ecstasy benzod iazepines (she was prescribed these) and amphetamines Will hold her benzodiazepines at this time with her somnolence as needed Ativan available if need be. - Will also discontinue gabapentin altogether reduce trazodone to as needed alcohol/drug induced encephalopaty (2) Alcohol abuse: Plan: As above- she reports previously sober x 4 years poorly last drink was on 09 December - drinks secondary to a PTSD event- unsure what - Return to [facility] once mentation improves and no other metabolic abnormalities - Continue Thiamine and Folic acid (3) Withdrawal seizures: Plan: As above (4) PTSD (post-traumatic stress disorder): Plan: As above - continue Paxil (5) GERD (gastroesophageal reflux disease): Plan: Famotidine IV until Po tolerated Plan: Patient will moved to medical floor with seizure precautions Admission and Anticipated Discharge Date Admission Date: December 14, 2021 Results & Data Results & Data ([facility]) Vital Signs (Past 12 Hours) Vital Signs Temp Pulse Resp BP Pulse Ox Pulse Ox 12/15/21 07:29 98.2 F 82 16 108/66 96 12/14/21 22:20 95 PG Care Time/CCT Total # of Minutes Spent Total Time Spent with Patient: Total time spent is greater than 50% in coordination of care (as documented) at patient's floor/unit and/or counseling patient: Coding Diagnoses Overdose T50.904A Encounter type: initial encounter Injury intent: undetermined intent Alcohol abuse F10.10 Withdrawal seizures F19.239; R56.9 PTSD (post-traumatic stress disorder) F43.10 GERD (gastroesophageal reflux disease) K21.9 (1) Overdose Encounter type: initial encounter Injury intent: undetermined intent Qualified Code(s): T50.904A - Poisoning by unspecified drugs, medicaments and biological substances, undetermined, initial encounter
[2021-12-15] MEDS: PANTOprazole 40 MG in SYRINGE 0 ML IV SCH (11:30)
--- NOTE | 2021-12-15 12:12 | Discharge Summary ---
Date of Service December 15, 2021 Admission HPI Per Admitting Provider 36 YOF with medical history of: Alcohol abuse, reported seizures with withdraw, neuropathy, PTSD, rib pain from fall. Patient [facility] overdose. The patient reports that she has been having trouble sleeping since she has stopped drinking and just wanted something to help her sleep. She reports taking 30 tabs of Adderall but unclear of time- appears to be yesterday, and then still unable to sleep she took 1/2 tab of Suboxone from a person there and took that. She reports that she knew it was Suboxone by "the taste". The patient states that she took her normal amount of her other medications last evening at their normal dose except the Adderall and the Suboxone. In the EMD the patient had routine labs performed to include- salicylate level, etoh level, Tylenol level, valproic acid, and lithium level, ECG, CXR. She was given 0.2mg IV Narcan in EMD and 1 liter of crystalloid. Hospitalist service was consulted for admission. She has not voided yet so will obtain straight cath if she does not void with tox screen for full profile. Will administer another dose of Narcan as she remains somnolent, but is improving as the interview goes on. RR as low as 6 upon entering room. She will be admitted to PCU status with monitoring capabilities of EtCO2 and continue to follow her mentation and Narcan needs. She has normal Qt interval. EMD discussed with poison control. Overall patient slightly improving- as above re-dose Narcan if needed- continue with IVF of LR at 125ml/hr- will hold on her benzodiazepine for now until her mentation improves and will likely be able to dose later for her ETHO withdraw/seizures. VBG and lactate pending as well as urine tox. COVID test is: NEGATIVE Reports PCP as: P[facility]- in [place]- [phone] as well as physician at [facility] Principal Diagnosis encephalopathy due to overdose Discharge Exam The patient appeared well Vital signs as documented. Lungs are clear to auscultation and appear unlabored Cardiac exam, Rhythm is regular.. No murmurs, rubs or gallops. Abdominal exam reveals normal bowel sounds, soft non tender, no masses Extremities are nonedematous and both pedal pulses are normal. Neurologic exam is alert and oriented, no focal loss of strength or sensation Skin is without bruises or rashes Psychologically is with concerns of alcohol abuse and substance abuse Discharge Data Allergies Allergy/AdvReac Type Severity Reaction Status Date / Time propylene glycol AdvReac Unknown Verified 12/13/21 23:07 Consultations 12/13/21 10:14 ED Decision to Admit Stat Hospital Course (1) Overdose: Patient with alcohol history who was enrolled to [facility] rehab on - with her last drink of Alcohol reported - she used to drink to pass out and has since been unable to sleep - As per HPI unsure of what is ingested- but she reports 30tabs of adderral uncertain time and another agent she was told was Suboxone given to her by a co- resident - given Narcan on admission with improvement of her sedation but returned after it wore off - Unintentional overdose without suicidal ideation voiced by patient- - Urine tox scree for full profile of other agents found to have ecstasy benzodiazepines (she was prescribed these) and amphetamines Will hold her benzodiazepines at this time with her somnolence as needed Ativan available if need be. - Will also discontinue gabapentin altogether reduce trazodone to as needed alcohol/drug induced encephalopaty (2) Alcohol abuse: As above- she reports previously sober x 4 years poorly last drink was on 09 December - drinks secondary to a PTSD event- unsure what - Return to [facility] once mentation improves and no other metabolic abnormalities - (3) Withdrawal seizures: As above (4) PTSD (post-traumatic stress disorder): As above - continue Paxil (5) GERD (gastroesophageal reflux disease): Famotidine IV until Po tolerated Patient will moved to medical floor with seizure precautions Total Time Total Time Spent Total Time Spent (In Minutes): greater than 30 minutes were required to prepare this discharge Discharge Plan Discharge Items Patient Disposition: Drug & Alcohol Rehab Reason For Visit: OVERDOSE, WITHDRAWAL Discharge Diagnosis: overdose seizure disorder Activity: Resume your previous activity Non-emergency contact: Primary Care Provider and Neurologist Call non-emergency contact if: your symptoms worsen and you have a fever Follow-up/Referrals: PCP,NO [Primary Care Provider] - Diet: Regular Addtl Attending Provider Instructions: [facility] Pending Studies at Discharge: No Stand-Alone Forms: My [facility] Skilled Items Patient informed of condition?: Yes DNR: No Discharge Level of Care: Other Communicable Disease: No Discharge Prognosis: Stable Lines: None Urinary Catheter: No Medications and DC Order Prescriptions: Continued multivitamin Tablet 1 tab PO DAILY RF: 0 gabapentin 600 mg Tablet 600 mg PO DAILY RF: 0 cyanocobalamin (vitamin B-12) [Vitamin B-12] 1,000 mcg Tablet 1,000 mcg PO DAILY RF: 0 thiamine HCl (vitamin B1) 100 mg Tablet 100 mg PO DAILY RF: 0 trazodone 100 mg Tablet 100 mg PO HS RF: 0 folic acid 1 mg Tablet 1 mg PO DAILY RF: 0 paroxetine HCl 40 mg Tablet 50 mg PO DAILY RF: 0 biotin 1,000 mcg Tablet,Chewable 1,000 mcg PO DAILY RF: 0 Changed diazepam [Valium] 5 mg Tablet 5 mg PO BID Qty: 0 RF: 0 Discharge Orders: Discharge Order (Routine); Ordered 12/15/21 Ordered By: Juan Dejesus/Other Patient Handouts: Addiction Disease Understand, Addiction: Getting Help Admission Data Admit Date/Time: 12/14/21 16:16 Attending Provider: Juan Mcgill Admit Provider: Luis Antonio Man Primary Care Provider: PCP,NO Other Providers: Luis Antonio Man Other Interventions: Discharge Summary Assessment (RN) Last Done: 12/15/21 11:05 Coding Level of Care Code D/C DAY MANAGEMENT >30 MINS Diagnoses Overdose T50.904A Encounter type: initial encounter Injury intent: undetermined intent Alcohol abuse F10.10 Withdrawal seizures F19.239; R56.9 PTSD (post-traumatic stress disorder) F43.10 GERD (gastroesophageal reflux disease) K21.9
[2021-12-19 11:31] LABS: 7-Aminoclonaz, Confirm NEGATIVE ng/mL (<25); Amphetamine Urine, Confirm >15000 ng/mL (<250); Hydro-Alp Ur, GC/MS NEGATIVE ng/mL (<25); Hydroxyethylflurazepam, Conf NEGATIVE ng/mL (<50); Hydroxymidazolam Ur, GC/MS NEGATIVE ng/mL (<50); Hydroxytriazolam NEGATIVE ng/mL (<50); Lorazepam, Ur GC/MS NEGATIVE ng/mL (<50); MDA negative; MDEA negative; MDMA (Ecstasy) Urine, Confirm negative; Methamphetamine, Ur Confirm NEGATIVE ng/mL (<250); Nordiazepam, Confirm >2000 ng/mL (<50); Oxazepam Ur, GC/MS >2000 ng/mL (<50); Temazepam, Confirm >2000 ng/mL (<50)
== END 2021-12-15 12:28 | disposition alcohol treatment (31) | DRG 917 ==
LOC: ED 07:43 → 1E 07:43 → SUATTDRO 10:56 → 1E 12:09 → 3E 12-14 21:36